=== PATIENT | female | born 1960 | race Caucasian/White ===

== ENCOUNTER 2017-05-30 13:34 | Inpatient (IN) | payer BC ==
[~2017-05-30] VITALS: Ht 157.5 cm; Wt 55.1 kg
[2017-06-22] VITALS (13 sets, daily range): BP systolic 98–152; BP diastolic 58–82; PULSE 63–78; TEMP 97.2–98.6
[2017-06-22] MEDS ORDERED: HCTZ 25MG TAB25 MG PO (06:28)
[2017-06-22] MEDS ORDERED: TIAZAC360 MG PO (06:29)
[2017-06-22] MEDS ORDERED: NEURONTIN100 MG/CAP PO (06:30)
[2017-06-22] MEDS ORDERED: LEXAPRO 10MG10 MG PO (06:30)
[2017-06-22] MEDS ORDERED: ULTRAM 50MG TAB50 MG PO (06:30)
[2017-06-22] MEDS ORDERED: CHANTIX 1MG1 MG PO (06:31)
[2017-06-22] MEDS ORDERED: NEOMYCIN S500 MG/TAB PO (06:32)
[2017-06-23 01:32] VITALS: BP 136/68; PULSE 76; TEMP 97.8
[2017-06-23 05:21] VITALS: BP 122/67; PULSE 74; TEMP 98.2
[2017-06-23 07:35] LABS: HEMOGLOBIN 12.7 g/dl (12.5-16.0)
[2017-06-23 07:51] LABS: HEMATOCRIT 36.3 % (37.0-47.0)
[2017-06-23 08:00] LABS: CALCIUM 9.1 mg/dL (8.4-10.2); CREATININE, serum 0.75 mg/dL (0.52-1.25); POTASSIUM 3.1 mmol/L (3.4-5.0)
[2017-06-23 10:08] VITALS: BP 134/66; PULSE 76; TEMP 98
[2017-06-23 13:05] VITALS: BP 135/63; PULSE 86; TEMP 99
[2017-06-23 18:09] VITALS: BP 153/67; PULSE 81; TEMP 98.4
[2017-06-23 22:58] VITALS: BP 143/70; PULSE 116; TEMP 98.1
[2017-06-24 05:28] VITALS: BP 153/71; PULSE 58; TEMP 97.9
[2017-06-24 10:25] VITALS: BP 146/77; PULSE 66; TEMP 98.3
== END 2017-06-24 14:00 | disposition home or self-care (01) | DRG 330 ==
LOC: SURG 06-22 05:24 → INPTSU 06-22 05:24 → SURG 06-22 07:30
PROVIDERS: Surgery
PROC: 0TQB4ZZ Repair Bladder, Percutaneous Endoscopic Approach (ICD-10-PCS; 2017-06-22)
PROC: 8E0W4CZ Robotic Assisted Procedure of Trunk Region, Percutaneous Endoscopic Approach (ICD-10-PCS; 2017-06-22)
PROC: 0DJD8ZZ Inspection of Lower Intestinal Tract, Via Natural or Artificial Opening Endoscopic (ICD-10-PCS; 2017-06-22)
PROC: 0DTN4ZZ Resection of Sigmoid Colon, Percutaneous Endoscopic Approach (ICD-10-PCS; principal; 2017-06-22 07:30)
DX: K57.32 Diverticulitis of large intestine without perforation or abscess without bleeding (principal); N99.72 Accidental puncture and laceration of a genitourinary system organ or structure during other procedure; N32.1 Vesicointestinal fistula; D12.4 Benign neoplasm of descending colon; I10 Essential (primary) hypertension; F17.210 Nicotine dependence, cigarettes, uncomplicated
CPT/HCPCS: A4314; A9284; J0330; J0690; J1100; J1170; J1650; J1885; J2175; J2405; J2704; J3010; J7120; Q9968

== ENCOUNTER → 2017-05-31 | Outpatient (CLI) | payer BC | LOC: MC.RAD 05-26 16:20 | DX: Z12.31 Encounter for screening mammogram for malignant neoplasm of breast (principal) ==

== ENCOUNTER → 2017-06-28 | Outpatient (CLI) | payer BC ==
[~2017-06-28] MED LIST: CHANTIX 1MG1 MG PO; HCTZ 25MG TAB25 MG PO; LEXAPRO 10MG10 MG PO; NEOMYCIN S500 MG/TAB PO; NEURONTIN100 MG/CAP PO; TIAZAC360 MG PO; ULTRAM 50MG TAB50 MG PO
== END ==
LOC: COL.RAD 07:59
DX: Z98.890 Other specified postprocedural states (principal); Z90.49 Acquired absence of other specified parts of digestive tract; Z96.0 Presence of urogenital implants
CPT/HCPCS: Q9967

== ENCOUNTER → 2019-05-08 | Outpatient (CLI) | payer BC | LOC: MC.RAD 08:45 | DX: Z12.31 Encounter for screening mammogram for malignant neoplasm of breast (principal) ==

== ENCOUNTER → 2019-12-26 | Outpatient (CLI) | payer BC | LOC: ZCOL.LAB 07:35 | DX: R51 Headache (principal); R53.83 Other fatigue; Z20.828 Contact with and (suspected) exposure to other viral communicable diseases ==

== ENCOUNTER → 2021-05-14 | Outpatient (CLI) | payer BC | LOC: MC.RAD 07:42 | DX: Z12.31 Encounter for screening mammogram for malignant neoplasm of breast (principal) ==

== ENCOUNTER 2021-11-04 13:27 | Observation (INO) | payer BC ==
[~2021-11-04] VITALS: Ht 157.5 cm; Wt 57.7 kg
[2021-11-04 14:35] LABS: COLLECTION METHOD CLEAN CATCH
[2021-11-04 14:40] LABS: HEMATOCRIT 42.9 % (37.0-47.0); HEMOGLOBIN 14.5 g/dl (12.5-16.0); MEAN CELL VOLUME 91 fl (80.0-100.0); MEAN CORPUSCULAR HEMOGLOBIN 31 pg (27-31); MEAN CORPUSCULAR HGB CONC 34 g/dl (33.0-37.0); MEAN PLATELET VOLUME 9.6 fl (7.4-10.4); PLATELET COUNT 231 K/mm3 (130-400); REDCELL DISTRIBUTION WIDTH-CV 11.9 % (11.5-14.5)
[2021-11-04 14:48] LABS: MUCOUS Present (NOT PRESENT); PH 6 (5-8); SQUAMOUS EPITHELIAL 0-2 /hpf (0-10); URINE APPEARANCE Clear (CLEAR/HAZY); URINE BACTERIA None Seen /hpf (NONE SEEN); URINE BILIRUBIN Negative (NEGATIVE); URINE BLOOD Negative (NEGATIVE); URINE COLOR Straw (YELLOW); URINE GLUCOSE Negative (NEGATIVE); URINE KETONE Negative (NEGATIVE); URINE LEUKOCYTE ESTERASE Negative (NEGATIVE); URINE NITRATE Negative (NEGATIVE); URINE PROTEIN(semi-quant) Negative (NEGATIVE); URINE RBC None Seen /hpf (0-2); URINE UROBILINOGEN Negative (NEGATIVE); URINE WBC 0-2 /hpf (0-2)
[2021-11-04 14:50] LABS: INR 0.9 (0.8-3.0); PROTHROMBIN TIME 9.8 SECONDS (9.7-12.8)
[2021-11-04 14:53] LABS: PARTIAL THROMBOPLASTIN TIME 23.7 SECONDS (26.0-37.0)
[2021-11-04 14:56] LABS: ALANINE AMINOTRANSFERASE 17 U/L (0-55); ALBUMIN 3.8 gm/dL (3.4-4.8); ALKALINE PHOSPHATASE 66 U/L (40-150); ANION GAP 11 mmol/L (7-16); AST,SGOT 12 U/L (5-34); BILIRUBIN,TOTAL 0.5 mg/dL (0.2-1.2); BLOOD UREA NITROGEN 23 mg/dL (10-20); CALCIUM 8.6 mg/dL (8.4-10.2); CARBON DIOXIDE 28 mmol/L (23-31); CHLORIDE 95 mmol/L (98-107); CREATININE, serum 0.99 mg/dL (0.57-1.11); GLUCOSE 101 mg/dL (70-99); POTASSIUM 4.1 mmol/L (3.5-4.5); SODIUM 134 mmol/L (136-145); TOTAL PROTEIN 6.5 gm/dL (6.2-8.1)
[2021-11-04 14:57] LABS: ALCOHOL(ethanol),MEDICAL < 10 mg/dL (0-10)
[2021-11-04 15:06] LABS: TROPONIN-I 0.043 ng/mL (0.00-0.033)
[2021-11-04 15:32] LABS: TRICYCLIC ANTIDEPRESS URINE NEGATIVE
[2021-11-04 15:59] LABS: LYMPHOCYTE 23 % (20.0-51.0); NEUTROPHILS 72 % (42.0-75.2); PLATELET ESTIMATE NORMAL (NORMAL)
[2021-11-04] MEDS ORDERED: DIOVAN 40MG40 MG PO (16:00)
[2021-11-04] MEDS ORDERED: ZYBAN150 M1 (16:00)
[2021-11-04] MEDS ORDERED: PREDNISONE20 MG PO (16:00)
[2021-11-04] MEDS ORDERED: MOBIC15 MG PO (16:01)
--- NOTE | 2021-11-04 18:39 | NUR ---
Admission assessment completed, alert/oriented, vital signs stable, denies pain or discomfort, reports facial and fingertip numbness has resolved, Trop slightly bumped and I have notified of consult and he will see in the morning, heart RRR/ SR on tele, lugns CTA/ no reps.difficulty, patient does smoke daily, meds/allergies/pharmacy reviewed with patient, she denies need at this time
[2021-11-04 19:57] VITALS: BP 146/69; PULSE 66; TEMP 97.6
--- NOTE | 2021-11-04 20:00 | NUR ---
Pt. sitting up in bed. Pt. is A&OX3, assessment complete. Pt. denies numbness or tingling to face or rt. hand. Pt. denies pain or other needs, call light within reach.
[2021-11-04 23:53] VITALS: BP 136/64; PULSE 57; TEMP 97.8
[2021-11-05 04:20] VITALS: BP 141/73; PULSE 58; TEMP 97.5
[2021-11-05 07:45] VITALS: BP 155/75; PULSE 64; TEMP 97.7
--- NOTE | 2021-11-05 07:45 | NUR ---
Patient going down for MRI at this time
[2021-11-05] MEDS ORDERED: LIPITOR 40MG TA40 MG PO (08:01)
[2021-11-05] MEDS ORDERED: ASPIRIN 81M81 MG/TA2 PO (08:01)
[2021-11-05 08:12] LABS: HEMATOCRIT 44.4 % (37.0-47.0); HEMOGLOBIN 15.1 g/dl (12.5-16.0); MEAN CELL VOLUME 91 fl (80.0-100.0); MEAN CORPUSCULAR HEMOGLOBIN 31 pg (27-31); MEAN CORPUSCULAR HGB CONC 34 g/dl (33.0-37.0); MEAN PLATELET VOLUME 9.9 fl (7.4-10.4); PLATELET COUNT 181 K/mm3 (130-400); RED BLOOD COUNT 4.89 M/mm3 (4.10-5.30); REDCELL DISTRIBUTION WIDTH-CV 12.2 % (11.5-14.5)
[2021-11-05 08:23] LABS: CALCIUM 8.5 mg/dL (8.4-10.2); CREATININE, serum 0.9 mg/dL (0.57-1.11); POTASSIUM 4.2 mmol/L (3.5-4.5)
[2021-11-05 08:32] LABS: EOSINOPHIL 2 % (0-4); LYMPHOCYTE 43 % (20.0-51.0); NEUTROPHILS 45 % (42.0-75.2); PLATELET ESTIMATE NORMAL (NORMAL)
--- NOTE | 2021-11-05 10:09 | NUR ---
EL met with the patient to discuss discharge plan. The patient lives in [place] with her , Tee (ph#[phone]). She reports independence with ADLs and does not have any DME. The patient's PCP is Dr. Patricio Lundy and she receives her medications from [facility]. The patient does not have a DPOA-HC and she was not interested in completing one at this time. The patient plans on returning home with her upon discharge. She has been independent in her room. No additional needs at this time. *Discharge plan: home with *
--- NOTE | 2021-11-05 11:04 | NUR ---
Assessment completed, alert/oriented, vital signs stable, denies any pain or discomfort, denies any further symptoms of numbness or tingling, MRI brain negative for acute findings, carotid US negative, patient refusing HÉCTOR and wants to go home today, I have discussed plan of care with the hospitalist and Cardiology
[2021-11-05 12:06] VITALS: BP 162/73; PULSE 74; TEMP 98.2
--- NOTE | 2021-11-05 12:39 | NUR ---
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 No needs right now.
--- NOTE | 2021-11-05 14:09 | NUR ---
Cardiology has came by and discussed risks and benefits of leaving AMA, patient still does not want to stay and have HÉCTOR and stress test done at this time, she verbalized understanding of risks of leaving under these circumstances, IV and tele removed, we have instructed ther to follow up with PCP and Cardiology and recommend setting these tests/procedures up at her earliest convenience, instructed to take meds as prescribed, we gave her scripts for ASA and Lipitor, she veralized understanding of education, leaving with her at this time
[2021-11-05 18:39] LABS: LYME DISEASE ANTIBODIES Negative (Negative)
[2021-11-06 19:19] LABS: CADMIUM BLOOD 0.6 ng/mL (<5.0); LEAD,SERUM** 1.2 mcg/dL (<5.0); MERCURY,SERUM <1 ng/mL (<10)
[2021-11-09 21:54] LABS: A/G RATIO (PEP) 1.07 (())
== END 2021-11-05 14:11 | disposition home or self-care (01) ==
LOC: COL.ER 13:27 → MEDICAL 16:20
PROVIDERS: Emergency Medicine; Psychiatry & Neurology Neurology; ADMIT Internal Medicine
DX: G45.9 Transient cerebral ischemic attack, unspecified (principal); I70.90 Unspecified atherosclerosis; R77.8 Other specified abnormalities of plasma proteins; I10 Essential (primary) hypertension; D72.829 Elevated white blood cell count, unspecified; F32.A Depression, unspecified; F17.210 Nicotine dependence, cigarettes, uncomplicated; Z79.899 Other long term (current) drug therapy
CPT/HCPCS: A9575; G0378; J7030